=== PATIENT | male | born 1995 | race Caucasian/White ===

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

== ENCOUNTER 2017-01-04 15:53 | Emergency (ER) | payer MEDICAID | END 2017-01-04 16:26 | disposition left against medical advice (07) | LOC: D.ER 15:53 | DX: T40.7X1A Poisoning by cannabis (derivatives), accidental (unintentional), initial encounter (principal); Y92.89 Other specified places as the place of occurrence of the external cause ==

== ENCOUNTER 2017-04-15 23:20 | Emergency (ER) | payer MEDICAID | END 2017-04-16 01:15 | disposition home or self-care (01) | LOC: D.ER 23:20 | DX: Z00.00 Encounter for general adult medical examination without abnormal findings (principal); F17.200 Nicotine dependence, unspecified, uncomplicated ==

== ENCOUNTER 2018-02-25 15:02 | Emergency (ER) | payer MEDICAID ==
[~2018-02-25] VITALS: Ht 182.9 cm; Wt 72.7 kg
[2018-02-25 15:04] VITALS: Ht 182.9 cm; Wt 72.7 kg
[2018-02-25] MEDS ORDERED: ADOXA100 MG PO (15:44)
[2018-02-25 15:50] VITALS: BP 111/59
== END 2018-02-25 15:51 | disposition home or self-care (01) ==
LOC: D.ER 15:02
DX: L70.0 Acne vulgaris (principal); F17.200 Nicotine dependence, unspecified, uncomplicated

== ENCOUNTER 2018-04-14 11:00 | Emergency (ER) | payer MEDICAID ==
[~2018-04-14] VITALS: Ht 182.9 cm; Wt 72.7 kg
[~2018-04-14 11:00] MED LIST: ADOXA100 MG PO
[2018-04-14 11:04] VITALS: BP 105/58; Ht 182.9 cm; Wt 72.7 kg
== END 2018-04-14 13:01 | disposition left against medical advice (07) ==
LOC: D.ER 11:00
DX: L70.0 Acne vulgaris (principal); F17.200 Nicotine dependence, unspecified, uncomplicated

== ENCOUNTER 2018-05-13 17:53 | Emergency (ER) | payer MEDICAID ==
[~2018-05-13] VITALS: Ht 182.9 cm; Wt 68.2 kg
[2018-05-13 18:44] VITALS: Ht 182.9 cm; Wt 68.2 kg
[2018-05-13] MEDS ORDERED: VOLTAREN75 MG PO (20:43)
[2018-05-13] MEDS ORDERED: BACTRIM 400-801 TAB PO (20:43)
[2018-05-13 21:13] VITALS: BP 130/75
== END 2018-05-13 21:14 | disposition home or self-care (01) ==
LOC: D.ER 17:53
DX: L03.211 Cellulitis of face (principal)

== ENCOUNTER 2020-07-15 21:27 | Emergency (ER) | payer BC ==
[~2020-07-15] VITALS: Ht 182.9 cm; Wt 68.2 kg
[~2020-07-15 21:27] MED LIST changes: +BACTRIM 400-801 TAB PO; +VOLTAREN75 MG PO
[2020-07-15 21:35] VITALS: Ht 182.9 cm; Wt 68.2 kg
[2020-07-15 22:01] LABS: NITRITE NEGATIVE (NEGATIVE)
[2020-07-15 22:02] LABS: BILIRUBIN NEGATIVE (NEGATIVE); KETONE NEGATIVE (NEGATIVE); UROBILINOGEN NORMAL mg/dL (< 2)
[2020-07-15 22:08] LABS: UDS - AMPHET NEGATIVE QUAL (NEGATIVE); UDS - BARB NEGATIVE QUAL (NEGATIVE); UDS - BENZO NEGATIVE QUAL (NEGATIVE); UDS - COCAINE NEGATIVE QUAL (NEGATIVE); UDS - OPIATE NEGATIVE QUAL (NEGATIVE); UDS - PCP NEGATIVE QUAL (NEGATIVE); UDS - THC POSITIVE QUAL (NEGATIVE)
[2020-07-15 22:19] LABS: BASOPHILS 0.2 % (0-2); EOSINOPHILS 1.1 % (0-7); HEMATOCRIT 46.5 % (42.0-54.0); HEMOGLOBIN 15.8 g/dL (13.5-17.5); IMMATURE GRANULOCYTES 0.2 % (0-5); LYMPHOCYTE ABS# 1.82 10x3/uL (1.32-3.57); LYMPHOCYTES 16.5 % (15-50); MCH 30.3 pg (26.0-34.0); MCV 89.3 fL (80.0-100.0); MEAN PLATELET VOLUME 10.1 fL (7.4-10.4); MONOCYTES 7.5 % (2-11); NEUTROPHIL ABS# 8.22 10x3/uL (1.78-5.38); NEUTROPHILS 74.5 % (40-80); PLATELET COUNT 181 10x3/uL (130-400); RBC 5.21 10x6/uL (4.20-6.10); RDW 13.7 % (11.5-14.5)
[2020-07-15 22:30] VITALS: BP 143/62
[2020-07-15 22:30] LABS: CALC OSMOLALITY 282 mosm/kg (275-300); CALCIUM 8.7 mg/dL (8.5-10.1); CARBON DIOXIDE 29.6 mmol/L (21.0-32.0); CHLORIDE - SERUM 104 mmol/L (98-107); GLUCOSE 96 mg/dL (74-106); POTASSIUM - SERUM 3.5 mmol/L (3.5-5.1); SODIUM 141 mmol/L (136-145); UREA NITROGEN 18 mg/dL (7-18); eGFR NON AFRICAN AMERICAN > 90 mL/min (90-120)
[2020-07-15 22:47] LABS: ALBUMIN 4.2 g/dL (3.4-5.0); ALKALINE PHOSPHATASE 99 U/L (30-120); ALT (SGPT) 40 U/L (10-68); AMYLASE - SERUM 58 U/L (25-115); BILIRUBIN - TOTAL 0.37 mg/dL (0.2-1.3); LIPASE 67 U/L (73-393); PROTEIN - SERUM 7.3 g/dL (6.4-8.2)
[2020-07-15 22:51] LABS: TROPONIN-I < 0.017 ng/mL (0.000-0.060)
[2020-07-16] MEDS ORDERED: ZOFRAN ODT4 MG/UDTAB PO (00:14)
== END 2020-07-16 00:19 | disposition home or self-care (01) ==
LOC: D.ER 21:27
PROVIDERS: Family Medicine
DX: R10.84 Generalized abdominal pain (principal); R11.2 Nausea with vomiting, unspecified